=== PATIENT | female | born 1985 | race African-American/Black ===

== ENCOUNTER 2017-06-25 18:57 | Outpatient (CLI) | payer OTHER | END 2017-06-25 20:29 | disposition home or self-care (01) | LOC: M LDO 18:57 | DX: O36.8130 Decreased fetal movements, third trimester, not applicable or unspecified (principal); Z3A.31 31 weeks gestation of pregnancy | CPT/HCPCS: 59025 ==

== ENCOUNTER 2017-08-22 22:28 | Inpatient (IN) | payer OTHER ==
[2017-08-23] MEDS ORDERED: OXYTOCIN 30 UNITS IN 0.9% NaCl 500ML IV BAG (J2590) As Ordered (01:33)
[2017-08-23 01:37] LABS: HEMATOCRIT 37.5 % (36.0-47.0); HEMOGLOBIN 13.2 g/dl (12.0-16.0); MEAN CORPUSCULAR HEMOGLOBIN 31.4 pg (27.0-33.0); MEAN CORPUSCULAR HGB CONC 35.2 g/dl (32.0-36.5); MEAN CORPUSCULAR VOLUME 89.3 fl (80.0-96.0); PLATELET COUNT, AUTOMATED 102 10^3/uL (150-450); RED CELL DISTRIBUTION WIDTH 12.7 % (11.5-14.5); WHITE BLOOD COUNT 7.2 10^3/uL (4.0-10.0)
[2017-08-23] MEDS: LACTATED RINGER'S 1000 ML IV (02:25)
[2017-08-23] MEDS: OXYTOCIN DRIP 30 UNITS in APPROPRIATE DILUENT 1 EA IV (02:26)
[2017-08-23] MEDS: AMPICILLIN SOD 2 GM in APPROPRIATE DILUENT 20 ML IV (02:26)
[2017-08-23] MEDS: BUTORPHANOL 2 MG/ML INJ (J0595) IV (02:27)
[2017-08-23] MEDS ORDERED: FENTANYL 2MCG/ML ROPIVACAINE 0.2% IN 0.9% NACL 200ML IVBAG As Ordered (05:02)
[2017-08-23] MEDS ORDERED: diphenhydrAMINE INJ 50MG/ML VIAL (J1200) IV (05:56)
[2017-08-23] MEDS ORDERED: ePHEDrine SULFATE 25 MG/5 ML(5MG/ML) SYRINGE IV (05:56)
[2017-08-23] MEDS ORDERED: REFRIGERATOR IV KEYS XX (05:56)
[2017-08-23] MEDS ORDERED: LACTATED RINGER'S 1000 ML IV (05:56)
[2017-08-23] MEDS ORDERED: FENTANYL/ROPIVACAINE/NACL BAG 200 ML EPIDURAL (05:56)
[2017-08-23] MEDS ORDERED: NALOXONE INJ 0.4 MG/1 ML VIAL (J2310) IV (05:56)
[2017-08-23] MEDS ORDERED: EPIDURAL COMMENT XX (05:56)
[2017-08-23] MEDS ORDERED: EPIDURAL/PCA KEYS XX (05:56)
[2017-08-23] MEDS ORDERED: ONDANSETRON 4MG/2ML VIAL (J2405) IV (05:56)
[2017-08-23] MEDS: AMPICILLIN SOD 1 GM in APPROPRIATE DILUENT 10 ML IV ×4 (06:28→18:06)
[2017-08-23] MEDS: LR 1,000 ML IV (15:03)
[2017-08-23] MEDS: D5W IV (21:19)
[2017-08-23] MEDS: GENTAMICIN IV (21:19)
[2017-08-23] MEDS: AMPICILLIN SOD 2 GM in D5W MINI-BAG PLUS 100 ML IV (22:25)
[2017-08-24] MEDS ORDERED: METOCLOPRAMIDE INJ 10MG/2ML VIAL (J2765) IV (01:45)
[2017-08-24] MEDS ORDERED: MEASLES,MUMPS,RUBELLA VACCINE INJ (MMR-II) (90707) SC (01:45)
[2017-08-24] MEDS ORDERED: DIBUCAINE 1% OINTMENT 30GM TOP (01:45)
[2017-08-24] MEDS ORDERED: PROMETHAZINE 25 MG TAB PO (01:45)
[2017-08-24] MEDS ORDERED: RHOGAM 300 MCG (1500 IU) INJ (J2790) IM (01:45)
[2017-08-24] MEDS ORDERED: DOCUSATE SODIUM 100 MG CAP PO (01:45)
[2017-08-24] MEDS ORDERED: METHYLERGONOVINE MALEATE 0.2 MG TAB PO (01:45)
[2017-08-24] MEDS ORDERED: ACETAMINOPHEN 500 MG TAB PO ×2 (01:45)
[2017-08-24] MEDS: LR 1,000 ML IV ×6 (03:59→21:57)
[2017-08-24] MEDS: IBUPROFEN 800 MG TAB PO (08:08)
[2017-08-24] MEDS: PRENATAL VITAMINS CHEWABLE TABLET PO (08:08)
[2017-08-25] MEDS: PRENATAL VITAMINS CHEWABLE TABLET PO (08:30)
[2017-08-25] MEDS: IBUPROFEN 800 MG TAB PO ×2 (08:30→23:22)
[2017-08-25] MEDS: LR 1,000 ML IV ×2 (09:01→17:01)
[2017-08-26] MEDS: PRENATAL VITAMINS CHEWABLE TABLET PO (08:43)
[2017-08-26] MEDS: IBUPROFEN 800 MG TAB PO (08:44)
== END 2017-08-26 10:20 | disposition home or self-care (01) | DRG 775 ==
LOC: M LDO 22:28 → M LDI 08-23 00:56 → M OBS 08-24 03:22
PROVIDERS: Obstetrics & Gynecology
PROC: 10E0XZZ Delivery of Products of Conception, External Approach (ICD-10-PCS; principal; 2017-08-24)
DX: O48.0 Post-term pregnancy (principal); O41.1030 Infection of amniotic sac and membranes, unspecified, third trimester, not applicable or unspecified; O99.824 Streptococcus B carrier state complicating childbirth; Z3A.40 40 weeks gestation of pregnancy; O69.81X0 Labor and delivery complicated by cord around neck, without compression, not applicable or unspecified; O76 Abnormality in fetal heart rate and rhythm complicating labor and delivery; O77.0 Labor and delivery complicated by meconium in amniotic fluid; Z37.0 Single live birth